=== PATIENT | female | born 1985 | race Caucasian/White ===

== ENCOUNTER 2018-07-17 10:12 | Emergency (ER) | payer OTHER ==
[~2018-07-17] VITALS: Ht 165.1 cm; Wt 100.7 kg
[2018-07-17 10:17] VITALS: BP 155/84; Ht 165.1 cm; Wt 100.7 kg
== END 2018-07-17 11:04 | disposition home or self-care (01) ==
LOC: ED 10:12
DX: S90.521A Blister (nonthermal), right ankle, initial encounter (principal); L08.9 Local infection of the skin and subcutaneous tissue, unspecified; J45.909 Unspecified asthma, uncomplicated; E66.9 Obesity, unspecified; Z68.36 Body mass index [BMI] 36.0-36.9, adult; X58.XXXA Exposure to other specified factors, initial encounter; Y93.89 Activity, other specified; Y92.89 Other specified places as the place of occurrence of the external cause; Y99.8 Other external cause status; F17.210 Nicotine dependence, cigarettes, uncomplicated
CPT/HCPCS: 90715

== ENCOUNTER 2019-07-05 04:49 | Emergency (ER) | payer SELFPAY ==
[~2019-07-05] VITALS: Ht 165.1 cm; Wt 90.7 kg
[2019-07-05 04:51] VITALS: Ht 165.1 cm; Wt 90.7 kg
[2019-07-05 06:15] VITALS: BP 115/70
== END 2019-07-05 06:15 | disposition home or self-care (01) ==
LOC: ED 04:49
DX: R05 Cough (principal); F15.10 Other stimulant abuse, uncomplicated; J45.909 Unspecified asthma, uncomplicated; Z20.828 Contact with and (suspected) exposure to other viral communicable diseases
CPT/HCPCS: Q0092; U0003-CS

== ENCOUNTER 2020-04-14 19:19 | Emergency (ER) | payer MEDICAID ==
[~2020-04-14] VITALS: Ht 175.3 cm; Wt 90.7 kg
[~2020-04-14 19:19] MED LIST: APAP/HYDROCODON1 T13 PO; HYDROXYZINE HYD25 MG PO; WELLBUTRIN SR150 M1 PO; ZOLOFT50 MG PO
[2020-04-14 19:48] VITALS: Ht 175.3 cm; Wt 90.7 kg
[2020-04-15 00:39] LABS: CALCIUM 8.8 mg/dL (8.5-10.1); CHLORIDE SERUM 105 mmol/L (98-107); CREATININE SERUM 0.9 mg/dL (0.6-1.0); GFR1 > 60 mL/min; GLUCOSE SERUM 92 mg/dL (74-106); POTASSIUM SERUM 3.5 mmol/L (3.5-5.1); SODIUM SERUM 138 mmol/L (136-145)
[2020-04-15 00:41] LABS: BASOPHIL % 1.1 % (0.2-1.3); PLATELET COUNT 286 x10^3mcL (179-408); RED CELL DISTRIBUTION WIDTH 13.9 % (12.3-17.7)
[2020-04-15 00:43] LABS: ALBUMIN 3.4 g/dL (3.4-5.0); ALKALINE PHOSPHATASE 91 U/L (46-116); ALT/SGPT 20 U/L (14-59); AST/SGOT 17 U/L (15-37); BILIRUBIN TOTAL 0.49 mg/dL (0.20-1.00); TOTAL PROTEIN, SERUM 6.6 g/dL (6.4-8.2)
[2020-04-15 10:42] LABS: microscopic required? YES
[2020-04-15 10:43] LABS: urine erythrocyte NEGATIVE (NEGATIVE)
[2020-04-15 11:17] LABS: AMPHETAMINE QUAL UR POSITIVE (See below)
--- NOTE | 2020-04-16 04:19 | NUR ---
At this time there are no beds availble at any of the deisgnated facilities charge nurse aware.Will endorsed to AM to continue to look for placement .
[2020-04-16] MEDS ORDERED: TRAZODONE150 M1 PO (23:17)
[2020-04-16] MEDS ORDERED: TRAZODONE50 M1 PO (23:18)
[2020-04-16 23:44] VITALS: BP 98/46
== END 2020-04-16 23:44 | disposition home or self-care (01) ==
LOC: ED 19:19
PROVIDERS: Emergency Medicine
DX: F15.10 Other stimulant abuse, uncomplicated (principal); J45.909 Unspecified asthma, uncomplicated; Z20.822 Contact with and (suspected) exposure to COVID-19; Y04.0XXA Assault by unarmed brawl or fight, initial encounter; Y93.89 Activity, other specified; Y92.89 Other specified places as the place of occurrence of the external cause; Y99.8 Other external cause status
CPT/HCPCS: G0480; J1630; J2060; J7030; U0003